=== PATIENT | female | born 1975 | race Caucasian/White ===

== ENCOUNTER → 2017-09-18 | Outpatient (CLI) | payer BC ==
[~2017-09-18] MED LIST: CEFDINIR300 MG PO; CLEOCIN HCL300 MG PO; NORCO 5-325 TA1 EACH PO; PHENERGAN 25 MG25 M1 PO; PREDNISONE 20 M20 M1 PO; PROMS25 WY RECTAL; PROZAC40 MG PO; prevacid
--- NOTE | 2017-09-21 14:42 | 24HR ---
[place] [address] [employer]ITOR REPORT Name: NISHI OLIVARES Room: [facility]#: [id number] Admission: 09/18/17 Attend Phys: Aldair Sanchez MD Discharge: Date of : 79 Date of Service: 09/21/17 1108 Report #: [id number] THIS REPORT FOR: //name// [facility] Test Date: 2017-09-21 Test Time: 11:08:23 Pat Name: NISHI OLIVARES Department: Room: Gender: F [employer]: : 1975 Requested By: Aldair Sanchez Order Number: [id number] Eloisa MD: Kirill Merchant Interpretive Statements 1. sinus rhythm with sinus tachycardia and sinus bradycardia 2. rare pac's 3. symptoms did not correlate with an arrhythmia Electronically Signed On 09-21-2017 14:42:21 [employer] by Kirill Merchant [email or web address] <ELECTRONICALLY SIGNED> By: Kirill Merchant MD, [facility] 09/21/17 1442 1108 1108 Kirill Merchant MD, FACC /EPI
== END ==
LOC: M.CRD 09:27
DX: R00.2 Palpitations (principal)